=== PATIENT | male | born 2000 | race Caucasian/White ===

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

== ENCOUNTER → 2023-04-29 | Outpatient (CLI) | payer OTHER | END | disposition home or self-care (01) | LOC: US 14:38 | PROVIDERS: ATTEND Surgery | DX: R22.41 Localized swelling, mass and lump, right lower limb (principal) ==